=== PATIENT | female | born 1995 | race Hispanic/Latino ===

== ENCOUNTER 2019-06-26 06:51 | Day surgery (SDC) | payer BC, OTHER ==
[2019-06-25 16:09] LABS: Specific Gravity 1.025 (1.005-1.030)
[2019-06-26] MEDS ORDERED: CEFAZOLIN/SWI 1gm 1 GM/10 ML SYR ONE (07:07)
[2019-06-26] MEDS ORDERED: Ringers Lactate 1,000 ML IV ONE (07:07)
[2019-06-26] MEDS ORDERED: BUPIVACA 0.25%/EPI 0.0005%/PF 30 ML VIAL ONE (07:32)
[2019-06-26] MEDS ORDERED: dexAMETHasone 10 MG/ML VIAL ONE (07:34)
[2019-06-26] MEDS ORDERED: propofoL 200 MG/20 ML VIAL IV ONE (07:34)
[2019-06-26] MEDS ORDERED: LIDOCAINE 2% MPF 5 ML VIAL ONE (07:34)
[2019-06-26] MEDS ORDERED: MIDAZOLAM HCL 2 MG/2 ML INJ ONE (07:34)
[2019-06-26] MEDS ORDERED: FENTANYL CITR 100 MCG/2 ML ONE (07:34)
[2019-06-26] MEDS ORDERED: ONDANSETRON 4 MG/2 ML VIAL ONE ×2 (07:35→09:38)
[2019-06-26] MEDS ORDERED: KETOROLAC 30 MG/ML INJ ONE (09:05)
--- NOTE | 2019-06-26 09:05 | P.OP ---
Preoperative diagnosis: Umbilical Hernia Postoperative diagnosis: Umbilical Hernia Primary procedure: Open Umbilical Hernia Repair with Mesh Anesthesia: GETA + Local Estimated blood loss: <5cc Specimen: Hernia sac, preperitoneal fat, omental fat Findings: entrapped omentum in ~0.3cm hernia defect Complications: None Implants: 2.5" ventralex mesh Transferred to: Recovery Room Condition: Good
[2019-06-26] MEDS: HYDROMORPHONE HCL 1 MG/ML INJ ONE ×2 (09:32→09:33)
[2019-06-26] MEDS ORDERED: HYDROCODONE/APAP 7.5/325 MG TAB PO ONE (10:25)
[2019-06-26] MEDS ORDERED: HYDROCODONE/APAP 7.5/325 MG TAB ONE (10:31)
[2019-06-26 12:12] VITALS: BP 120/77; TEMP 97.7; O2SAT 95
--- NOTE | 2019-06-26 13:50 | OP ---
Date of Procedure: 06/26/2019 Surgeon: Salazar Adams MD, Preoperative Diagnosis: Umbilical hernia. Postoperative Diagnosis: Umbilical hernia. Procedure: Open umbilical hernia repair with mesh, Ventralex 2.5 inch round mesh. Anesthesia: Endotracheal plus local with 0.5% Marcaine with epinephrine. Estimated Blood Loss: Less than 5 mL. Specimens: Hernia sac with preperitoneal fat and omental fat. Findings: Interrupted omentum and approximately 0.3 cm hernia defect, it was incarcerated. Complications: None. Implants: 2.5 inch Ventralex mesh. Condition: Transferred to recovery room in good condition. Procedure In Detail: After informed consent was obtained patient was brought to the operating room a nd prepped and draped in the usual sterile fashion. After adequate anesthesia was achieved, a curvil inear incision was made in the infraumbilical position at the subcutaneous tissues after anesthetizin g with 0.5% Marcaine with epinephrine. Dissection continued down to expose an obvious hernia defect in the umbilical position. The sac was circumferentially dissected from surrounding tissues using kayla th a combination of electrocautery and blunt dissection. The hernia sac was grasped and elevated and entered sharply with Metzenbaum scissors. Immediately omental fat was encountered at this point, th is was circumferentially dissected off the hernia sac, exposing the contents of the hernia sac which was found to be omental fat. There was no intestinal contents contained within. After this was circ umferentially peeled back, the omentum was grasped, elevated, and reduced out of the abdominal cavity and ligated using electrocautery with good hemostasis. It was then tucked back in the preperitoneal space and these portion of omental fat was sent off for pathologic examination. The hernia sac was then grasped, elevated, and blunt dissection in the preperitoneal space approximately 0.3 cm was diss ected circumferentially to allow for a good flat landing spot on the preperitoneal space after the pr eperitoneal fat was removed from this area using a combination of both blunt and electrocautery disse ction, this was also grasped, elevated, and removed along with the hernia sac. Finger sweep was perf ormed to allow for appropriate landing zone and there was no preperitoneal fat in the spot allowing f or adequate mesh placement. At this point, I used a parachute type 0 PDS suture into the mesh in 4 q uadrants, placed in the preperitoneal space, digitized to flatten it out and after this was flattened out, I secured the mesh to the preperitoneal space using the 2-0 PDS in the parachute fashion. Afte r this was performed, I irrigated the area copiously and suctioned completely dry. I then closed the primary fascial defect with a running 0 PDS suture and cleansed the area once again. I then sutured the posterior aspect of the dermal layer to the tail of the mesh to allow for a better cosmetic appe arance. After this was performed with a single 3-0 Vicryl suture, I irrigated the area and once agai n closed the skin with 4-0 Monocryl in interrupted fashion. Dermabond placed over top. Patient zohra rated the procedure well without evidence of complication, transferred to PACU in good condition. Al l counts were correct at the end of the case. KEVIN/LUI Voice ID: [id number] Report ID: [id number]
== END 2019-06-26 11:05 | disposition home or self-care (01) ==
LOC: DS 06:51
PROVIDERS: ATTEND Surgery
PROC: 0WUF0JZ Supplement Abdominal Wall with Synthetic Substitute, Open Approach (ICD-10-PCS; principal; 2019-06-26 08:00)
DX: K42.9 Umbilical hernia without obstruction or gangrene (principal); Z11.59 Encounter for screening for other viral diseases
CPT/HCPCS: 81025; 88302; 49585; J2704; J2250; J3010; J1100; J1170; J0690; J7120; J2405 ×2

== ENCOUNTER 2019-08-17 19:38 | Emergency (ER) | payer BC ==
--- NOTE | 2019-08-17 21:17 | RAD REPORT ---
EXAM DESCRIPTION: RAD - Tib Fib Right - 08/17/2019 8:43 pm CLINICAL HISTORY: PAIN COMPARISON: No comparisons FINDINGS: No fracture is identified. There is no dislocation or periosteal reaction noted. No acute or suspicious bony finding. No foreign body or other soft tissue abnormality. IMPRESSION: Negative right tibia & fibula examination. Findings at the foot and ankle are separately detailed.
--- NOTE | 2019-08-17 21:18 | RAD REPORT ---
EXAM DESCRIPTION: RAD - Foot Right 3 View - 08/17/2019 8:42 pm CLINICAL HISTORY: PAIN COMPARISON: None FINDINGS: No fracture, dislocation or periosteal reaction. No acute or destructive bone process. No air or foreign body in the soft tissues. Soft tissue swelling is present around the ankle. IMPRESSION: Soft tissue swelling is present but no fracture identified.
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
[2019-08-17] MEDS ORDERED: ACETAMINOPHEN 500 MG TAB ONE (23:46)
[2019-08-17] MEDS ORDERED: CEFAZOLIN SODIUM 1 GM/VIAL ONE (23:56)
[2019-08-17] MEDS ORDERED: LIDOCAINE 1% MPF 2 ML AMPULE ONE (23:57)
[2019-08-18] MEDS ORDERED: ONDANSETRON 4 MG/2 ML VIAL ONE (00:34)
[2019-08-18] MEDS ORDERED: MORPHINE 4 MG/ML SYR ONE (00:34)
[2019-08-18] MEDS ORDERED: CEFAZOLIN/SWI 1gm 1 GM/10 ML SYR ONE (00:35)
[2019-08-18] MEDS ORDERED: BUPIVACAINE 0.5% PF 10 ML VIAL ONE (01:08)
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
[2019-08-18 03:24] VITALS: BP 107/81; TEMP 97.1; O2SAT 99
== END 2019-08-18 02:54 | disposition home or self-care (01) ==
LOC: ER 19:38
PROC: 0JQN0ZZ Repair Right Lower Leg Subcutaneous Tissue and Fascia, Open Approach (ICD-10-PCS; principal; 2019-08-18)
DX: S82.401A Unspecified fracture of shaft of right fibula, initial encounter for closed fracture (principal); S91.011A Laceration without foreign body, right ankle, initial encounter; V59.9XXA Occupant (driver) (passenger) of pick-up truck or van injured in unspecified traffic accident, initial encounter
CPT/HCPCS: 96365; 73630; 73590; 73610; 96375; 99284; 12002; J2001; J0690 ×2; J2405